=== PATIENT | male | born 1980 | race Two or more races ===

== ENCOUNTER 2023-07-25 09:55 | Emergency (ER) | payer OTHER ==
[~2023-07-25] VITALS: Ht 175.3 cm; Wt 78.9 kg
[~2023-07-25 09:55] MED LIST: AMOX1TAB12 PO; CIPRO500 MG PO; FLAGYL500MG PO; INTESTINEX1 CA1 PO; KLONOPIN0.5 MG/TAB; LIPITOR20 MG; OMEGA-31000 MG; PROTONIX20 MG PO; PROTONIX40 MG PO; VIIBRYD
== END 2023-07-25 15:02 | disposition home or self-care (01) ==
LOC: ER 09:55
DX: S61.512A Laceration without foreign body of left wrist, initial encounter (principal); W25.XXXA Contact with sharp glass, initial encounter; Y93.89 Activity, other specified; Y92.89 Other specified places as the place of occurrence of the external cause; Y99.8 Other external cause status; E11.9 Type 2 diabetes mellitus without complications